=== PATIENT | female | born 1945 | race Caucasian/White ===

== ENCOUNTER 2019-12-03 16:18 | Emergency (ER) | payer MEDICARE ==
[~2019-12-03] VITALS: Ht 154.9 cm; Wt 60.0 kg
--- NOTE | 2019-12-03 16:21 | NUR ---
NA X 1
--- NOTE | 2019-12-03 18:35 | NUR ---
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
[2019-12-03 19:10] LABS: BASOPHILS % (AUTO) 0 % (0-1); EOSINOPHILS # (AUTO) 0.13 x10^3/uL (0-0.4); EOSINOPHILS % (AUTO) 1 % (1-7); LYMPHOCYTES # (AUTO) 0.41 x10^3/uL (1-3.4); LYMPHOCYTES % (AUTO) 4 % (22-44); MD NO; MEAN CORPUSCULAR HEMOGLOBIN 30.5 pg (27.0-34.8); MEAN CORPUSCULAR HGB CONC 32.5 g/dL (32.4-35.8); MEAN CORPUSCULAR VOLUME 93.6 fL (80-100); MEAN PLATELET VOLUME 10.2 fL (7.4-10.4); MONOCYTES # (AUTO) 0.38 x10^3/uL (0.2-0.8); MONOCYTES % (AUTO) 4 % (2-9); NEUTROPHILS # (AUTO) 8.46 x10^3/uL (1.8-6.8); NEUTROPHILS % (AUTO) 90 % (42-75); PLATELET COUNT 161 x10^3/uL (130-400); RED BLOOD COUNT 4.12 x10^6/uL (3.82-5.3); RED CELL DISTRIBUTION WIDTH 14.6 % (9.6-15.2)
[2019-12-03 19:19] LABS: ALANINE AMINOTRANSFERASE 20 U/L (12-78); ALBUMIN 3.6 g/dL (3.4-5.0); ANION GAP 8 mmol/L (5-15); CALCIUM 9.6 mg/dL (8.5-10.1); CHLORIDE 108 mmol/L (98-107)
[2019-12-03 19:22] LABS: ALKALINE PHOSPHATASE 81 U/L (45-117); BILIRUBIN,TOTAL 0.7 mg/dL (0.2-1.0); TOTAL PROTEIN 6.8 g/dL (6.4-8.2)
--- NOTE | 2019-12-03 19:56 | NUR ---
Report received from ALBA Chase. This RN to assume care. Patient presents to ER c/o RLQ abd pain. No N/V/D or urinary symptoms. Hx kidney stones. Patient is in NAD. Respirations even and unlabored.
[2019-12-03 20:27] LABS: MICROSCOPIC INDICATED
[2019-12-03] MEDS ORDERED: SODIUM CHLORIDE 0.9% 1,000ML IVBOLUS ONE (20:30)
[2019-12-03] MEDS ORDERED: SODIUM CHLORIDE FLUSH 10ML SYR IVF ONE (20:30)
--- NOTE | 2019-12-03 21:15 | NUR ---
Patient feeling better at this time. No complaints.
[2019-12-03 21:30] VITALS: BP 110/46
== END 2019-12-03 21:47 | disposition home or self-care (01) ==
LOC: ED 16:48
DX: N20.0 Calculus of kidney (principal); R31.9 Hematuria, unspecified; R10.31 Right lower quadrant pain; R11.2 Nausea with vomiting, unspecified; I10 Essential (primary) hypertension; E11.9 Type 2 diabetes mellitus without complications; E78.00 Pure hypercholesterolemia, unspecified
CPT/HCPCS: 36415; 74176; 80053; 81001; 83690; 85025; 87077; 87086; 87147; 87186; 99284

== ENCOUNTER → 2020-01-13 | Outpatient (CLI) | payer MEDICARE ==
[~2020-01-13] MED LIST: ALPH300C PO; ASPI81TA45 PO; ATOR40TA78 PO; CHOL10003 PO; EXEN2PEN INJ; PIOG15TA69 PO; RAMI10CA59 PO; [UNRECOGNIZED DRUG - CODE] PO
== END | disposition home or self-care (01) ==
LOC: STAR 14:26
PROVIDERS: ATTEND Anesthesiology
DX: Z01.812 Encounter for preprocedural laboratory examination (principal); Z20.828 Contact with and (suspected) exposure to other viral communicable diseases; N20.0 Calculus of kidney
CPT/HCPCS: 36415; 87635; 93005

== ENCOUNTER 2020-01-17 08:29 | Day surgery (SDC) | payer MEDICARE ==
[~2020-01-17] VITALS: Ht 154.9 cm; Wt 58.0 kg
[2020-01-17] MEDS ORDERED: CHLORHEXIDINE 15 ML UDC MM STA (08:53)
[2020-01-17] MEDS ORDERED: LACTATED RINGERS 1,000 ML IV ONE (08:53)
[2020-01-17 08:54] VITALS: BP 139/65
[2020-01-17] MEDS ORDERED: CHLORHEXIDINE 15 ML UDC ONE (09:01)
[2020-01-17] MEDS ORDERED: FENTANYL PF 100 MCG/2ML ONE ×2 (10:26→11:26)
[2020-01-17] MEDS ORDERED: LIDOCAINE PF 2%, 5ML ONE (10:31)
[2020-01-17] MEDS ORDERED: CEFAZOLIN 1,000 MG ONE (10:31)
[2020-01-17] MEDS ORDERED: ONDANSETRON 2MG/ML, 2ML ONE ×2 (10:31→12:33)
[2020-01-17] MEDS ORDERED: DEXAMETHASONE 4 MG/ML, 1ML ONE (10:31)
[2020-01-17] MEDS ORDERED: PROPOFOL 10 MG/ML, 20ML ONE (10:31)
[2020-01-17] MEDS ORDERED: FENTANYL PF 100 MCG/2ML IV PRN (11:00)
[2020-01-17] MEDS ORDERED: PROMETHAZINE 25 MG SUPP PR PRN (11:00)
[2020-01-17] MEDS ORDERED: METHOCARBAMOL 1,000 MG in DEXTROSE 5% 100 ML IV PRN (11:00)
[2020-01-17] MEDS ORDERED: OXYcodone 5 MG/5 ML ORAL.SOL UDC PO PRN (11:00)
[2020-01-17] MEDS ORDERED: ONDANSETRON 2MG/ML, 2ML IVPush PRN (11:00)
[2020-01-17] MEDS ORDERED: ACETAMINOPHEN 325 MG TABLET PO PRN (11:00)
[2020-01-17] MEDS ORDERED: PROMETHAZINE 25 MG/ML, 1ML IVPush PRN (11:00)
[2020-01-17] MEDS ORDERED: KETOROLAC 30 MG/1 ML IV PRN (12:00)
[2020-01-17] MEDS ORDERED: HYDROcodone/APAP 5/325 TABLET PO PRN (12:00)
[2020-01-17] MEDS ORDERED: OMNIPAQUE 350 MG/ML, 50 ML BOTTLE ONE (12:10)
[2020-01-17] MEDS ORDERED: ACETAMINOPHEN 650 MG/20.3 ML UDC ONE (12:13)
[2020-01-17] MEDS ORDERED: OXYcodone 5 MG/5 ML ORAL.SOL UDC ONE (12:14)
[2020-01-17] MEDS ORDERED: KETOROLAC 30 MG/1 ML ONE (12:14)
[2020-01-17] MEDS ORDERED: HYDROmorphone 1 MG/ML, 1ML INJ ONE (12:44)
[2020-01-17] MEDS: HYDROmorphone 1 MG/ML, 1ML INJ IVPush PRN ×2 (12:45→12:51)
[2020-01-17] MEDS ORDERED: PHENAZOPYRIDINE 200 MG TABLET ONE (14:58)
== END 2020-01-17 15:15 | disposition home or self-care (01) ==
LOC: OUT 08:29
PROVIDERS: ATTEND Urology
DX: N20.0 Calculus of kidney (principal); E11.9 Type 2 diabetes mellitus without complications; Z79.899 Other long term (current) drug therapy; Z87.442 Personal history of urinary calculi; Z88.8 Allergy status to other drugs, medicaments and biological substances
CPT/HCPCS: 52356; 74420; 82360; 82962; 88300; C2617; J0690; J1100; J1170; J1885; J2405; J2704; J3010; J7120; Q9967; 76000

== ENCOUNTER 2020-11-28 11:25 | Emergency (ER) | payer MEDICARE ==
[~2020-11-28] VITALS: Ht 154.9 cm; Wt 56.8 kg
--- NOTE | 2020-11-28 12:55 | NUR ---
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 WILL GO TO ROOM AFTER COMPLETION OF TEST.
[2020-11-28 13:30] LABS: BASOPHILS % (AUTO) 1 % (0-1); EOSINOPHILS % (AUTO) 3 % (1-7); LYMPHOCYTES % (AUTO) 12 % (22-44); MEAN CORPUSCULAR HEMOGLOBIN 30.6 pg (27.0-34.8); MEAN CORPUSCULAR HGB CONC 32.8 g/dL (32.4-35.8); MEAN PLATELET VOLUME 9.6 fL (7.4-10.4); MONOCYTES % (AUTO) 6 % (2-9); NEUTROPHILS % (AUTO) 78 % (42-75); PLATELET COUNT 180 x10^3/uL (130-400); RED BLOOD COUNT 4.24 x10^6/uL (3.82-5.3); RED CELL DISTRIBUTION WIDTH 14.7 % (9.6-15.2)
[2020-11-28 13:37] LABS: CHLORIDE 108 mmol/L (98-107)
[2020-11-28 13:43] LABS: ALANINE AMINOTRANSFERASE 21 U/L (12-78); ALBUMIN 3.6 g/dL (3.4-5.0); ALKALINE PHOSPHATASE 104 U/L (45-117); ANION GAP 3 mmol/L (5-15); BILIRUBIN,TOTAL 0.6 mg/dL (0.2-1.0); CALCIUM 9.8 mg/dL (8.5-10.1); CREATININE 0.81 mg/dL (0.55-1.02); TOTAL PROTEIN 7.3 g/dL (6.4-8.2)
[2020-11-28 13:58] VITALS: BP 155/84
[2020-11-28 14:22] LABS: MICROSCOPIC INDICATED
== END 2020-11-28 15:10 | disposition home or self-care (01) ==
LOC: ED 14:45
DX: N13.30 Unspecified hydronephrosis (principal); R31.9 Hematuria, unspecified; I10 Essential (primary) hypertension; E11.9 Type 2 diabetes mellitus without complications; E78.00 Pure hypercholesterolemia, unspecified; Z88.1 Allergy status to other antibiotic agents
CPT/HCPCS: 36415; 74018; 76770; 80053; 81001; 85025; 87077; 87086; 87186; 99285